=== PATIENT | male | born 1965 | race Caucasian/White ===

== ENCOUNTER 2020-02-13 00:49 | Observation (INO) | payer SELFPAY ==
[~2020-02-13] VITALS: Ht 180.3 cm; Wt 95.0 kg
[~2020-02-13 00:49] MED LIST: LISINOP/HCTZ1 TA1 PO; PROTONIX40 M2 PO
[2020-02-13 01:50] LABS: HEMATOCRIT 36.9 % (39.0-50.0); HEMOGLOBIN 12.5 g/dl (14.0-18.0); IMMATURE GRANULOCYTES 0.9 % (0.0-5.0); MEAN CELL VOLUME 90.9 fL CALC (80.0-100.0); MEAN CORPUSCULAR HGB 30.8 pG CALC (26.0-32.0); MEAN CORPUSCULAR HGB CONC 33.9 g/dL CAL (32.0-36.0); NEUT# 19.26 thou/uL (1.82-7.42); RED BLOOD COUNT 4.06 mill/uL (4.70-6.10); RED CELL DISTRI WIDTH 11.6 % (11.5-15.5)
[2020-02-13 02:12] LABS: ALKALINE PHOSPHATASE 119 u/l (38-126); ANION GAP 14 (6-22 (CALC)); BILIRUBIN, TOTAL 0.9 mg/dL (0.0-1.4); BUN 11 mg/dL (9-20); BUN/CREATININE RATIO 11 (12-20 (CALC)); CARBON DIOXIDE 28 mmol/l (22-30); CHLORIDE 88 mmol/l (95-108); GFR > 60 ML/MIN (>=60 (CALC)); GFR FOR AFR.AMER. > 60 ML/MIN (>=60 (CALC)); LIPASE 228 u/l (23-300); POTASSIUM 4.2 mmol/l (3.5-5.1); SGOT/AST 37 u/l (17-59); SODIUM 126 mmol/l (137-146); TOTAL PROTEIN 6.8 g/dL (6.3-8.2)
[2020-02-13 02:22] LABS: C-REACTIVE PROTEIN 20.4 mg/dL (0-0.9)
[2020-02-13 05:29] LABS: URINE BILIRUBIN - DIPSTICK NEGATIVE (NEGATIVE); URINE BLOOD DIPSTICK TRACE-LYSED (NEGATIVE); URINE COLOR YELLOW; URINE GLUCOSE - DIPSTICK NEGATIVE (NEGATIVE); URINE KETONE NEGATIVE (NEGATIVE); URINE NITRITE - DIPSTICK NEGATIVE (Negative); URINE PH 6.5 (4.5-8.0); URINE PROTEIN - DIPSTICK TRACE mg/dL (NEG-TRACE)
[2020-02-13 06:14] LABS: HEMATOCRIT 38.6 % (39.0-50.0); HEMOGLOBIN 13.2 g/dl (14.0-18.0); IMMATURE GRANULOCYTES 0.4 % (0.0-5.0); MEAN CELL VOLUME 90.8 fL CALC (80.0-100.0); MEAN CORPUSCULAR HGB 31.1 pG CALC (26.0-32.0); MEAN CORPUSCULAR HGB CONC 34.2 g/dL CAL (32.0-36.0); NEUT# 19.9 thou/uL (1.82-7.42); RED BLOOD COUNT 4.25 mill/uL (4.70-6.10); RED CELL DISTRI WIDTH 11.7 % (11.5-15.5)
[2020-02-13 06:44] LABS: ALKALINE PHOSPHATASE 131 u/l (38-126); ANION GAP 14 (6-22 (CALC)); BILIRUBIN, TOTAL 0.9 mg/dL (0.0-1.4); BUN 11 mg/dL (9-20); BUN/CREATININE RATIO 11 (12-20 (CALC)); CARBON DIOXIDE 32 mmol/l (22-30); CHLORIDE 87 mmol/l (95-108); GFR > 60 ML/MIN (>=60 (CALC)); GFR FOR AFR.AMER. > 60 ML/MIN (>=60 (CALC)); POTASSIUM 4.2 mmol/l (3.5-5.1); SGOT/AST 44 u/l (17-59); SODIUM 128 mmol/l (137-146); TOTAL PROTEIN 6.9 g/dL (6.3-8.2)
[2020-02-13 06:48] LABS: URINE LEUK ESTERASE NEGATIVE (NEGATIVE)
[2020-02-13 08:28] VITALS: BP 146/97
[2020-02-13 11:09] VITALS: BP 146/89
[2020-02-13 15:35] VITALS: BP 141/93
[2020-02-13 19:00] VITALS: BP 167/75
[2020-02-13 22:25] VITALS: BP 137/82
[2020-02-14 04:03] VITALS: BP 134/81
[2020-02-14 06:47] LABS: HEMATOCRIT 39.7 % (39.0-50.0); MEAN CELL VOLUME 94.1 fL CALC (80.0-100.0); MEAN CORPUSCULAR HGB 30.8 pG CALC (26.0-32.0); MEAN CORPUSCULAR HGB CONC 32.7 g/dL CAL (32.0-36.0); RED BLOOD COUNT 4.22 mill/uL (4.70-6.10)
[2020-02-14 06:59] LABS: ANION GAP 15 (6-22 (CALC)); BUN 12 mg/dL (9-20); BUN/CREATININE RATIO 11 (12-20 (CALC)); CALCULATED LDLCHOLESTEROL 155 mg/dL (62-129 (CALC)); CARBON DIOXIDE 26 mmol/l (22-30); CHLORIDE 97 mmol/l (95-108); CHOLESTEROL HDL RATIO 5.2 (<4.4 (CALC)); CREATININE 1.1 mg/dL (0.7-1.3); GFR > 60 ML/MIN (>=60 (CALC)); GFR FOR AFR.AMER. > 60 ML/MIN (>=60 (CALC)); HDL CHOLESTEROL 44 mg/dL (>=40); MAGNESIUM 2.1 mg/dL (1.6-2.3); POTASSIUM 4.5 mmol/l (3.5-5.1); SODIUM 133 mmol/l (137-146); TOTAL CHOLESTEROL 230 mg/dl (0-199); TOTAL TRIGLYCERIDES 151 mg/dl (30-149); VLDL CHOLESTROL 30 mg/dl (8-62 (CALC))
[2020-02-14 08:05] VITALS: BP 128/82
[2020-02-14] MEDS ORDERED: DICLOFENAC75 MG PO (13:29)
== END 2020-02-14 14:19 | disposition home or self-care (01) | DRG 728 ==
LOC: ED 00:49 → ED-I 03:37 → ED 04:01 → MS2 04:02
PROVIDERS: Nurse Practitioner; ADMIT Internal Medicine; ATTEND Internal Medicine
DX: N45.3 Epididymo-orchitis (principal); E87.1 Hypo-osmolality and hyponatremia; N43.3 Hydrocele, unspecified; D72.829 Elevated white blood cell count, unspecified; I10 Essential (primary) hypertension; F41.9 Anxiety disorder, unspecified; Z87.891 Personal history of nicotine dependence; Z20.828 Contact with and (suspected) exposure to other viral communicable diseases
CPT/HCPCS: G0378

== ENCOUNTER 2020-02-29 17:34 | Emergency (ER) | payer SELFPAY ==
[~2020-02-29] VITALS: Ht 180.3 cm; Wt 90.0 kg
[~2020-02-29 17:34] MED LIST changes: +DICLOFENAC75 MG PO
[2020-02-29] MEDS ORDERED: SMZ-TMP DS1 TAB PO (18:48)
[2020-02-29 20:19] LABS: IMMATURE GRANULOCYTES 0.1 % (0.0-5.0); MEAN CELL VOLUME 92.5 fL CALC (80.0-100.0); MEAN CORPUSCULAR HGB 30.1 pG CALC (26.0-32.0); MEAN CORPUSCULAR HGB CONC 32.6 g/dL CAL (32.0-36.0); NEUT# 4.55 thou/uL (1.82-7.42); RED BLOOD COUNT 3.32 mill/uL (4.70-6.10); RED CELL DISTRI WIDTH 12.5 % (11.5-15.5)
[2020-02-29 20:26] LABS: HEMATOCRIT 30.7 % (39.0-50.0)
[2020-02-29 20:37] LABS: ALBUMIN 3.4 g/dL (3.2-5.0); ALKALINE PHOSPHATASE 84 u/l (38-126); ANION GAP 9 (6-22 (CALC)); BILIRUBIN, TOTAL 0.2 mg/dL (0.0-1.4); BUN 26 mg/dL (9-20); BUN/CREATININE RATIO 19 (12-20 (CALC)); CARBON DIOXIDE 28 mmol/l (22-30); CHLORIDE 105 mmol/l (95-108); CREATININE 1.4 mg/dL (0.7-1.3); GFR 53 ML/MIN (>=60 (CALC)); GFR FOR AFR.AMER. > 60 ML/MIN (>=60 (CALC)); POTASSIUM 4.9 mmol/l (3.5-5.1); SGOT/AST 22 u/l (17-59); SODIUM 138 mmol/l (137-146); TOTAL PROTEIN 6.1 g/dL (6.3-8.2)
[2020-02-29 21:17] VITALS: BP 138/79
[2020-02-29] MEDS ORDERED: BACTRIM DS1 TAB PO (21:39)
[2020-02-29] MEDS ORDERED: LORTAB 5/3255 MG PO (21:39)
[2020-02-29 21:50] LABS: URINE BILIRUBIN - DIPSTICK NEGATIVE (NEGATIVE); URINE BLOOD DIPSTICK NEGATIVE (NEGATIVE); URINE COLOR YELLOW; URINE GLUCOSE - DIPSTICK NEGATIVE (NEGATIVE); URINE KETONE TRACE mg/dL (NEGATIVE); URINE LEUK ESTERASE NEGATIVE (NEGATIVE); URINE NITRITE - DIPSTICK NEGATIVE (Negative); URINE PH 5.5 (4.5-8.0); URINE PROTEIN - DIPSTICK NEGATIVE (NEG-TRACE); URINE SPECIFIC GRAVITY >=1.030; URINE UROBILINOGEN - DIPSTICK 0.2 E.U./dL (0.2)
== END 2020-02-29 21:52 | disposition home or self-care (01) | DRG 728 ==
LOC: ED 17:34
PROVIDERS: Family Medicine
PROC: 0V953ZZ Drainage of Scrotum, Percutaneous Approach (ICD-10-PCS; principal; 2020-02-29)
DX: N49.2 Inflammatory disorders of scrotum (principal); I10 Essential (primary) hypertension; F41.9 Anxiety disorder, unspecified; F17.200 Nicotine dependence, unspecified, uncomplicated

== ENCOUNTER 2020-03-03 10:53 | Observation (INO) | payer SELFPAY ==
[~2020-03-03] VITALS: Ht 180.3 cm; Wt 86.7 kg
[~2020-03-03 10:53] MED LIST changes: +BACTRIM DS1 TAB PO; +LORTAB 5/3255 MG PO; +SMZ-TMP DS1 TAB PO
[2020-03-03 12:07] LABS: HEMATOCRIT 34.6 % (39.0-50.0); HEMOGLOBIN 11.4 g/dl (14.0-18.0); IMMATURE GRANULOCYTES 0.2 % (0.0-5.0); MEAN CELL VOLUME 90.6 fL CALC (80.0-100.0); MEAN CORPUSCULAR HGB 29.8 pG CALC (26.0-32.0); MEAN CORPUSCULAR HGB CONC 32.9 g/dL CAL (32.0-36.0); NEUT# 4.16 thou/uL (1.82-7.42); RED BLOOD COUNT 3.82 mill/uL (4.70-6.10); RED CELL DISTRI WIDTH 12.2 % (11.5-15.5)
[2020-03-03 12:27] LABS: ANION GAP 11 (6-22 (CALC)); BUN 14 mg/dL (9-20); BUN/CREATININE RATIO 13 (12-20 (CALC)); CARBON DIOXIDE 26 mmol/l (22-30); CHLORIDE 102 mmol/l (95-108); CREATININE 1.1 mg/dL (0.7-1.3); GFR > 60 ML/MIN (>=60 (CALC)); GFR FOR AFR.AMER. > 60 ML/MIN (>=60 (CALC)); POTASSIUM 4.7 mmol/l (3.5-5.1); SODIUM 134 mmol/l (137-146)
--- NOTE | 2020-03-03 12:30 | NUR ---
PATIENT NOT IN CURRENT DISTRESS AT THIS TIME. THIS NURSE ATTEMPTED TO START AN IV X2 UNABLE TO GET ACCESS WILL HAVE ANOTHER PERSON TRY
--- NOTE | 2020-03-03 13:20 | NUR ---
PT LAYING IN BED AND AWAITING RESULTS. VSS. CALL LIGHT WITHIN REACH. WILL CONTINUE TO MONITOR.
--- NOTE | 2020-03-03 13:24 | NUR ---
PT LAYING IN BED IN NO DISTRESS WITH NO COMPLAINTS OR NEEDS. VSS. BED IS IN THE LOWEST POSITION WITH ALL WHEELS LOCKED AND CALL LIGHT IS WITHIN REACH. WILL CONTINUE TO MONITOR.
--- NOTE | 2020-03-03 17:00 | NUR ---
PT MOVED TO A HOSPITAL BED AND GIVEN WARM BLANKET. PT IS SITTING IN BED AWAITING DINNER TRAY. VSS. PT BREATHING IS EVEN AND UNLABORED AT 18 RESPIRATIONS A MINUTE. BED IS IN THE LOWEST POSITION WITH ALL WHEELS LOCKED AND CALL LIGHT IS WITHIN REACH. WILL CONTINUE TO MONITOR.
--- NOTE | 2020-03-03 19:10 | NUR ---
RECEIVED REPORT. PT RESTING. APPEARS TO BE SLEEPING. IN HOSPITAL BED HE IS AN ER HOLD FOR NOW.
[2020-03-03 21:26] VITALS: BP 172/88
--- NOTE | 2020-03-03 22:06 | NUR ---
CALLED TO GIVE REPORT. JAKE WILL CALL BACK.
--- NOTE | 2020-03-03 23:09 | NUR ---
REPORT CALLED TO JAMIR JOSEPH/CARLYN
[2020-03-03 23:28] VITALS: BP 164/82
--- NOTE | 2020-03-03 23:28 | NUR ---
PT TO FLOOR VIA W/C.
--- NOTE | 2020-03-03 23:28 | NUR ---
PT RESTING. FEELS BETTER AFTER MEDICATED. PT VOIDED 400 CC
[2020-03-03 23:48] VITALS: BP 157/98
--- NOTE | 2020-03-03 23:48 | NUR ---
PT RECEIVED FROM ED TO ROOM 261. ARRIVES VIA STRETCHER ACCOMPANIED BY RN. PT AMBULATORY TO BED. GAIT STEADY AND BALANCED. PT DENIES PAIN AT THIS TIME. ORIENTED TO UNIT, ROOM, CALL VELIZ, LIGHTS, TV. ICE CHIPS PROVIDED. PT TO BE NPO AT MIDNIGHT, PT VERBALIZES UNDERSTANDING AND AGREEMENT. CALL VELIZ WITHIN REACH. AGREES TO CALL PRN.
--- NOTE | 2020-03-04 03:35 | NUR ---
PT HAS REPEATEDLY TAKEN HIS BIPAP MASK OFF. RT IS BEDSIDE WITH HIM
[2020-03-04 04:00] VITALS: BP 157/104
--- NOTE | 2020-03-04 04:01 | NUR ---
PT LAYING IN BED WITH EYES CLOSED, APPEARS TO BE SLEEPING, APPEARS COMFORTABLE AND IN NO DISTRESS. RESPIRATIONS REGULAR AND UNLABORED. ITEMS REMAIN WITHIN REACH, CALL VELIZ REMAINS WITHIN REACH. BED REMAINS LOCKED AND IN LOW POSITION WITH BEDRAILS UP X2. WILL CONTINUE TO MONITOR.
[2020-03-04 05:19] LABS: HEMATOCRIT 36.5 % (39.0-50.0); HEMOGLOBIN 12.1 g/dl (14.0-18.0); IMMATURE GRANULOCYTES 0.2 % (0.0-5.0); MEAN CORPUSCULAR HGB 30.2 pG CALC (26.0-32.0); MEAN CORPUSCULAR HGB CONC 33.2 g/dL CAL (32.0-36.0); NEUT# 2.34 thou/uL (1.82-7.42); RED BLOOD COUNT 4.01 mill/uL (4.70-6.10); RED CELL DISTRI WIDTH 12.3 % (11.5-15.5)
[2020-03-04 05:37] LABS: ALBUMIN 3.6 g/dL (3.2-5.0); ALKALINE PHOSPHATASE 94 u/l (38-126); ANION GAP 12 (6-22 (CALC)); BUN 17 mg/dL (9-20); BUN/CREATININE RATIO 18 (12-20 (CALC)); CARBON DIOXIDE 24 mmol/l (22-30); CHLORIDE 106 mmol/l (95-108); CREATININE 0.9 mg/dL (0.7-1.3); GFR > 60 ML/MIN (>=60 (CALC)); GFR FOR AFR.AMER. > 60 ML/MIN (>=60 (CALC)); POTASSIUM 4.7 mmol/l (3.5-5.1); SGOT/AST 26 u/l (17-59); SODIUM 136 mmol/l (137-146); TOTAL PROTEIN 6.3 g/dL (6.3-8.2)
[2020-03-04 05:40] LABS: BILIRUBIN, TOTAL 0.5 mg/dL (0.0-1.4)
--- NOTE | 2020-03-04 07:30 | NUR ---
REPORT RECEIVED FROM JAMIR JOSEPH. PT SITTING UPRIGHT IN BED. REPORTS 8/10 PAIN TO LEFT SCROTUM. PAIN MEDICATION AND SCHEDULE DISCUSSED. PT. INQUIRING ABOUT I&D SURGERY TODAY, MAINTAINING NPO STATUS AT THIS TIME. PLAN OF CARE REVIEWED. CALL LIGHT REVIEWED AND IN REACH. PT STATES UNDERSTANDING.
[2020-03-04 08:16] VITALS: BP 146/96
[2020-03-04] MEDS ORDERED: BACTRIM DS1 TAB PO (08:53)
--- NOTE | 2020-03-04 09:00 | NUR ---
PT UPDATED THAT SURGERY WILL BE TOMORROW AM. PT. AGITATED. THROWING ITEMS FROM BEDSIDE TABLE ONTO FLOOR. PLAN OF CARE EXPLAINED. REASSURANCE AND COMFORT PROVIDED. PT REQUEST A BEER. PT. QUESTIONED ON DRINKING HABITS, REPORTS DRINKING 12 BEERS EVERYDAY WITH LAST DRINK YESTERDAY BEFORE PRESENTING TO ED. BARBARA RAMIREZ NOTIFIED. ORDER FOR ATIVAN X 1 NOW AND LIBRIUM Q 6. PT. ALSO COMPLAINS OF POOR PAIN CONTROL, STAYING AT 8/10 CONSTANTLY. MORPHINE IV PRN ORDERED. ATIVAN ADMINISTERED AT THIS TIME. WILL CONTINUE TO MONITOR.
--- NOTE | 2020-03-04 10:09 | NUR ---
S: LUCILLE LABOY is a 54 M who presents with scrotal abscess. He has a history of HTN, anxiety, and murmur. All medications in patient's chart were reviewed. O: VS: BP 146/96 mmHg, P 88 bpm, RR 18 breaths/min, T 97.4 F W 86.664 kg, HT 71 inches, Scr= 0.9 mg/dL, CrCl= 116.4 ml/min A: Blood culture from 03/03/20 is pending. P: Patient is on Unasyn 3 g IV Q6H. Vancomycin ordered for pharmacy to dose. Start Vancomycin 1 g IV Q8H. Vancomycin trough is drawn before the 4th dose on 03/04/20 at 1530. Vancomycin goal trough is between 10-15 mcg/ml Pharmacy will follow and or advise on antibiotics use as needed.
--- NOTE | 2020-03-04 11:02 | NUR ---
CALL RETURNED TO PT'S SISTER, SHANIA. SHE WAS UPDATED PER PT'S REQUEST. SISTER STATES SHE IS CONCERNED ABOUT HER BROTHER BEING AN EVERYDAY DRINKER AND WITHDRAWL IN THE HOSPITAL. SHE WAS UPDATED ON NEW ORDERS FOR LIBRIUM AND ATIVAN. NO OTHER CONCERNS AT THIS TIME.
--- NOTE | 2020-03-04 12:45 | NUR ---
DR. PALACIOS AND BARBARA RAMIREZ IN TO SEE PT. AT THIS TIME. PLAN OF CARE UPDATED.
[2020-03-04 15:30] VITALS: BP 140/89
--- NOTE | 2020-03-04 16:51 | NUR ---
PT REPORTS MUCH IMPROVEMENT IN PAIN. COMFORTABLE AT THIS TIME.
[2020-03-04 19:00] VITALS: BP 150/92
--- NOTE | 2020-03-04 20:01 | NUR ---
PHYSICAL ASSESMENT COMPLETE. PT CURRENTLY DENIES PAIN OR DISCOMFORT. SCHEDULED MEDICATIONS AND PRN MEDICATION ADMINISTERED, SEE E-MAR. PT DENIES ANY NEEDS AT THIS TIME. PT ON ROOM AIR AND SATURATION IS 96 %. PLAN OF CARE REVIEWED, PT DENIES QUESTIONS, VERBALIZES UNDERSTANDING. ITEMS WITHIN REACH, BED LOCKED IN LOW POSITION W/ BEDRAILS UP X2. CALL VELIZ WITHIN REACH, AGREES TO CALL PRN.
[2020-03-04 20:32] LABS: URINE BILIRUBIN - DIPSTICK NEGATIVE (NEGATIVE); URINE BLOOD DIPSTICK NEGATIVE (NEGATIVE); URINE COLOR YELLOW; URINE GLUCOSE - DIPSTICK NEGATIVE (NEGATIVE); URINE KETONE NEGATIVE (NEGATIVE); URINE LEUK ESTERASE NEGATIVE (NEGATIVE); URINE NITRITE - DIPSTICK NEGATIVE (Negative); URINE PROTEIN - DIPSTICK NEGATIVE (NEG-TRACE); URINE SPECIFIC GRAVITY 1.025; URINE UROBILINOGEN - DIPSTICK 0.2 E.U./dL (0.2)
[2020-03-05] VITALS (8 sets, daily range): BP systolic 146–159; BP diastolic 88–98
--- NOTE | 2020-03-05 04:01 | NUR ---
PT RESTING IN BED, NO SIGNS OF DISTRESS NOTED, RESP EVEN AND UNLABORED. PT VOICES NO NEEDS OR COMPLAINTS AT THIS TIME. CALL LIGHT IN REACH,CONTINUE TO MONITOR.
--- NOTE | 2020-03-05 07:28 | NUR ---
SHIFT CHANGE [id number],WY AWAKE ALERT AND ORIENTED, ANXIOUS AT THIS TIME AND REQUESTING MED FOR ANXIETY, C/O TESTICLAR PAIN @ 09/18, IVF INFUSING, CALL VELIZ IN REACH. OR STAFF HERE NOW RECEIVING PT AND TRANSPORTING OFF UNIT VIA STRETCHER TO OR FOR PROCEDURE.
--- NOTE | 2020-03-05 07:44 | NUR ---
S: LUCILLE LABOY is a 54 M who presents with abscess/cellulitis. He has a history of HTN, +TOB,+ETOH,Anxiety and Mumur. All medications in patient's chart were reviewed. O: Trough level 18mcg/mL taken on 03/04/20 @ 1530 VS: BP 150/98 mmHg , P 72 bpm, RR 18 breath per minute ,T 97.0 F W 86 kg, HT 71 in, Scr= 0.9 mg/dL, CrCl= 116.4ml/min A: Blood culture is pending. P: Patient is on Unasyn 3 G Q6H IV . Vancomycin ordered for pharmacy to dose. Change to Vancomycin 1 G IV Q12H. Vancomycin trough is drawn before the 4th dose on 03/06/20 @ 1630. Vancomycin goal trough is between 10-15 mcg/ml. Pharmacy will follow and or advise on antibiotics use as needed.
--- NOTE | 2020-03-05 11:41 | NUR ---
TRANSPORTED BACK TO UNIT VIA STRETCHER BY OR/PACU STAFF AND ASSISTED BACK TO BED, AOERT, NO C/O DISCOMFORT AT THIS TIME, DRESSING TO LEFT TESTICULAR AREA CDI. BEDSIDE REPORT GIVEN BY MATTHEW, STATED PT ALREADY HAD ORAL FLUIDS AND TOLERATED WELL, IVF INFUSING, POST-OP VITAL SIGNS BEING MONITORED, MEASURED AND RECORDED AT THIS TIME, CALL VELIZ IN REACH.
--- NOTE | 2020-03-05 12:56 | NUR ---
PT ANXIOUS AND C/O SEVERE PAIN TO SCROTAL AREA STATING MORPHINE DID NOT RELIEVE PAIN, WILL REPORT CONCERN TO MD AND CONTINUE TO MONITOR AND TREAT.
--- NOTE | 2020-03-05 12:59 | NUR ---
PT STATING DE DOESNT THINK NURSE GAVE MED, I ADVISED HIM MED WAS GIVEN, WILL FOLLOW UP
[2020-03-05] MEDS ORDERED: FLORASTOR250 M1 PO (14:11)
[2020-03-05] MEDS ORDERED: MINOCYCLINE100 MG PO (14:11)
[2020-03-05] MEDS ORDERED: KEFLEX500 MG PO (14:11)
[2020-03-05] MEDS ORDERED: LORTAB5 PO (14:12)
--- NOTE | 2020-03-05 16:11 | NUR ---
PT IS ANXIOUS AND IRATE AT THIS TIME WANTING TO LEAVE NOW AND STATES HIS PAIN HAS BEEN CONTROLLED, ORDERS ARE BEING PROCESSED AT THIS TIME.
--- NOTE | 2020-03-05 16:14 | NUR ---
PT WOULD NOT WAIT FOR NARCOTIS SCRIPT TO BE SIGNED AND LEFT AT THIS TIME.
--- NOTE | 2020-03-05 16:17 | NUR ---
Discharge instructions given. Patient verbalizes understanding of same. Discharged in stable condition via Ambulatory to Home with *Other. All belongings sent with pt.
== END 2020-03-05 16:15 | disposition home or self-care (01) | DRG 712 ==
LOC: ED 10:53 → ED-I 11:48 → ED 11:48 → ED-I 12:20 → ED 15:45 → ED-I 15:45 → ED 15:49 → ED-I 15:49 → MS2 21:30
PROVIDERS: Family Medicine; Nurse Practitioner Family; ADMIT Internal Medicine; ATTEND Internal Medicine
PROC: 0VTB0ZZ Resection of Left Testis, Open Approach (ICD-10-PCS; principal; 2020-03-05)
DX: N45.4 Abscess of epididymis or testis (principal); F10.10 Alcohol abuse, uncomplicated; I10 Essential (primary) hypertension; R01.1 Cardiac murmur, unspecified; F41.9 Anxiety disorder, unspecified; Z87.891 Personal history of nicotine dependence; Z59.0 Homelessness; Z91.19 Patient's noncompliance with other medical treatment and regimen; Z20.828 Contact with and (suspected) exposure to other viral communicable diseases
CPT/HCPCS: G0378; J0131; J1100; J1650